=== PATIENT | female | born 2000 | race Hispanic/Latino ===

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

== ENCOUNTER 2018-12-26 12:34 | Emergency (ER) | payer SELFPAY | END 2018-12-26 14:46 | disposition home or self-care (01) | LOC: ERS 12:34 | DX: J02.9 Acute pharyngitis, unspecified (principal); F41.9 Anxiety disorder, unspecified; F90.9 Attention-deficit hyperactivity disorder, unspecified type; F17.210 Nicotine dependence, cigarettes, uncomplicated | CPT/HCPCS: 87081; 87430; 99281 ==

== ENCOUNTER 2019-05-29 06:50 | Emergency (ER) | payer SELFPAY ==
[2019-05-29] MEDS ORDERED: predniSONE 20 MG TAB ONE (07:15)
[2019-05-29] MEDS ORDERED: Ibuprofen 800 MG TAB ONE (07:15)
== END 2019-05-29 08:15 | disposition home or self-care (01) ==
LOC: ERS 06:50
DX: J11.1 Influenza due to unidentified influenza virus with other respiratory manifestations (principal); J45.909 Unspecified asthma, uncomplicated; F90.9 Attention-deficit hyperactivity disorder, unspecified type; F41.9 Anxiety disorder, unspecified; F17.200 Nicotine dependence, unspecified, uncomplicated; Z79.51 Long term (current) use of inhaled steroids
CPT/HCPCS: 99284; J7512

== ENCOUNTER 2023-10-24 14:08 | Outpatient (CLI) | payer OTHER | END 2023-10-24 14:09 | disposition home or self-care (01) | LOC: BICULT 14:08 | PROVIDERS: ATTEND Obstetrics & Gynecology | DX: N63.10 Unspecified lump in the right breast, unspecified quadrant (principal) ==